=== PATIENT | male | born 1960 | race Caucasian/White ===

== ENCOUNTER 2017-11-12 22:11 | Emergency (ER) | payer MEDICARE ==
[~2017-11-12 22:11] MED LIST: FLUO-202 PO; GABA-503 PO; HYDR-2966 PO; LEVO150T78 PO; LISI-374 PO; TRAZ100T31 PO; WARF7.5T13 PO
[2017-11-12] MEDS ORDERED: LISI-374 PO (22:26)
[2017-11-12] MEDS ORDERED: LEVO25TA57 PO (22:28)
[2017-11-12] MEDS ORDERED: HYDR-2966 PO (22:28)
--- NOTE | 2017-11-12 22:45 | ER Report ---
History and Physical Time Seen By MD: 22:44 Hx. of Stated Complaint: PT HAS PASSED OUT SEVERAL TIMES TODAY. NOT EATING WELL. HAS BEEN DRINKING WATER DURING THE DAY. STATES HE WAS OUT IN THE SUN ALL DAY YESTERDAY AND HAD DRINKS LAST NIGHT. HPI/ROS CHIEF COMPLAINT: syncope HISTORY OF PRESENT ILLNESS: This is a 57 year old male. He has had several episodes of syncope today. He has not been eating well. He has been working outside in the heat and despite drinking water, does not think he has had enough to drink and is dehydrated. He has had this happen in the past as well. He has had a stroke in the past and does not have the use of his left side of his body. He was operating some equipment today and says that he has one hand to either drink water with or operate the joystick on the equipment. He denies any chest pain or palpitations. He has not shortness of breath. Mild dizziness/ lightheaded at times. He has no seizure activity. No injuries with his syncope. Says that he feels it coming on and can get down without falling or injury. Similar to previous episodes, feels the right side of his body go cool prior to the episodes. and co-workers indicate no episodes of confusion. REVIEW OF SYSTEMS: Constitutional: No fever or chills. Eyes: No vision changes. ENT: No sore throat. No congestion. Cardiovascular: As above. Respiratory: No cough. Gastrointestinal: No abdominal pain. No nausea or vomiting. No problems with bowels. Genitourinary: No dysuria or problems with urination. Musculoskeletal: No back pain or extremity pain. Skin: No rashes. Neurological: No headache. No new neurologic changes. Allergies: Coded Allergies: No Known Drug Allergies (Unverified , 11/12/17) Home Meds Active Scripts Clonidine Hcl (CLONIDINE HCL) 0.1 Mg Tablet, 0.1 MG PO BID Y for HYPERTENSION, # 10 TAB 0 Refills Prov:JASMINE COLON MD 11/13/17 Reported Medications Levothyroxine Sodium (SYNTHROID) 25 Mcg Tablet, 25 MCG PO QDAY 11/12/17 Hydrochlorothiazide (HYDROCHLOROTHIAZIDE) 25 Mg Tablet, 1 TAB PO QDAY, TAB 11/12/17 Lisinopril (LISINOPRIL) 40 Mg Tablet, 40 MG PO QDAY, TAB 11/12/17 Reviewed Nurses Notes: Yes Hx Smoking: No Exposure to Second Hand Smoke?: No Hx Substance Use Disorder: No Hx Alcohol Use: Yes (1 nightly) Constitutional Vital Sign - Last 24 Hours 11/12/17 11/12/17 11/12/17 11/12/17 22:20 23:23 23:25 23:28 Temp 98.8 Pulse 87 85 90 90 Resp 14 B/P (MAP) 150/108 145/91 (109) 154/116 (129) 169/123 (138) Pulse Ox 91 94 93 94 O2 Delivery Room Air Room Air Room Air Room Air 11/13/17 11/13/17 11/13/17 11/13/17 00:00 00:41 01:30 02:00 Pulse 88 87 86 85 B/P (MAP) 162/116 (131) 160/107 (124) 164/122 (136) 159/120 (133) Pulse Ox 96 95 95 94 O2 Delivery Room Air Room Air Room Air Room Air 11/13/17 11/13/17 11/13/17 02:30 03:00 03:15 Pulse 83 82 83 B/P (MAP) 157/111 (126) 145/84 (104) 164/108 (126) Pulse Ox 95 96 96 O2 Delivery Room Air Room Air Room Air Physical Exam General Appearance: The patient is alert. No acute distress. Blood pressure running high, but he had not taking his Lisinopril 40mg and HCTZ 12.5mg tonight. Eyes: Pupils are equal, round. Reactive to light. No pallor, injection or icterus. Extraocular movements are intact. ENT: Mucous membranes are moist. Normal oral mucosa. Posterior oropharynx is normal. Neck: Supple and non tender. No lymphadenopathy. Respiratory: Lungs are clear to auscultation. Cardiovascular: Regular rate and rhythm. No murmurs, gallops or rubs. Normal capillary refill. Gastrointestinal: Abdomen is soft and non tender. Nondistended. Normal active bowel sounds. No costovertebral angle tenderness with percussion. Neurological: Alert and oriented x3. Cranial nerves with eye exam as noted. Tongue deviation to left side, chronic. Has chronic changes from his past stroke with paralysis of the left side. Skin: Warm and dry. No rashes. Musculoskeletal: Extremities are nontender. DIFFERENTIAL DIAGNOSIS: After history and physical exam, differential diagnosis was considered for a patient with syncope including but not limited to vasovagal syncope, arrhythmia, dehydration, and metabolic causes. Medical Decision Making Data Points Result Diagram: 11/12/17231411/12/172314 Laboratory Hematology Test 11/12/17 22:22 11/12/17 23:15 Urine Color Yellow Urine Clarity Clear Urine pH 6.0 pH (4.8-9.5) Urine Specific [place] 1.011 Urine Protein Negative mg/dL (NEGATIVE) Urine Glucose (UA) Negative mg/dL (NEGATIVE) Urine Ketones Negative mg/dL (NEGATIVE) Urine Blood Negative (NEGATIVE) Urine Nitrite Negative (NEGATIVE) Urine Bilirubin Negative (NEGATIVE) Urine Urobilinogen Negative mg/dL (0.2-1.9) Urine Leukocyte Esterase Negative (NEGATIVE) Urine RBC <1 /HPF (0-2/HPF) Urine WBC <1 /HPF (0-5/HPF) Urine Squamous Epithelial Cells Few /LPF (</=FEW) Urine Transitional Epithelial Cells Few /LPF (NONE-FEW) Urine Bacteria Negative /HPF (NONE-FEW) Urine Mucus Few /HPF (NONE-FEW) Red Blood Count 5.68 M/uL (4.00-5.60) Mean Corpuscular Volume 92.5 fL (80.0-96.0) Mean Corpuscular Hemoglobin 32.4 pg (26.0-33.0) Mean Corpuscular Hemoglobin Concent 35.0 g/dL (32.0-36.0) Red Cell Distribution Width 13.4 % (11.5-14.5) Mean Platelet Volume 8.7 fL (7.2-11.1) Neutrophils (%) (Auto) 80.7 % (39.4-72.5) Lymphocytes (%) (Auto) 13.1 % (17.6-49.6) Monocytes (%) (Auto) 5.5 % (4.1-12.4) Eosinophils (%) (Auto) 0.2 % (0.4-6.7) Basophils (%) (Auto) 0.5 % (0.3-1.4) Nucleated RBC Relative Count (auto) 0.1 /100WBC Neutrophils # (Auto) 7.9 K/uL (2.0-7.4) Lymphocytes # (Auto) 1.3 K/uL (1.3-3.6) Monocytes # (Auto) 0.5 K/uL (0.3-1.0) Eosinophils # (Auto) 0.0 K/uL (0.0-0.5) Basophils # (Auto) 0.0 K/uL (0.0-0.1) Nucleated RBC Absolute Count (auto) 0.01 K/uL Erythrocyte Sedimentation Rate 1 mm/HOUR (0-20) Sodium Level 137 mmol/L (137-145) Potassium Level 3.3 mmol/L (3.5-5.0) Chloride Level 98 mmol/L (98-107) Carbon Dioxide Level 28 mmol/L (22-30) Blood Urea Nitrogen 13 mg/dl (9-21) Creatinine 1.00 mg/dl (0.66-1.25) Glomerular Filtration Rate Calc > 60.0 Random Glucose 110 mg/dl (75-110) Calcium Level 9.2 mg/dl (8.4-10.2) Total Bilirubin 1.1 mg/dl (0.2-1.3) Aspartate Amino Transf (AST/SGOT) 30 U/L (0-35) Alanine Aminotransferase (ALT/SGPT) 57 U/L (0-56) Alkaline Phosphatase 51 U/L (0-126) Troponin I < 0.012 ng/ml Total Protein 6.9 g/dl (6.3-8.2) Albumin 4.1 g/dl (3.5-5.0) Chemistry Test 11/12/17 22:22 11/12/17 23:15 Urine Color Yellow Urine Clarity Clear Urine pH 6.0 pH (4.8-9.5) Urine Specific [place] 1.011 Urine Protein Negative mg/dL (NEGATIVE) Urine Glucose (UA) Negative mg/dL (NEGATIVE) Urine Ketones Negative mg/dL (NEGATIVE) Urine Blood Negative (NEGATIVE) Urine Nitrite Negative (NEGATIVE) Urine Bilirubin Negative (NEGATIVE) Urine Urobilinogen Negative mg/dL (0.2-1.9) Urine Leukocyte Esterase Negative (NEGATIVE) Urine RBC <1 /HPF (0-2/HPF) Urine WBC <1 /HPF (0-5/HPF) Urine Squamous Epithelial Cells Few /LPF (</=FEW) Urine Transitional Epithelial Cells Few /LPF (NONE-FEW) Urine Bacteria Negative /HPF (NONE-FEW) Urine Mucus Few /HPF (NONE-FEW) White Blood Count 9.8 k/uL (4.5-11.0) Red Blood Count 5.68 M/uL (4.00-5.60) Hemoglobin 18.4 g/dL (14.0-18.0) Hematocrit 52.6 % (42.0-52.0) Mean Corpuscular Volume 92.5 fL (80.0-96.0) Mean Corpuscular Hemoglobin 32.4 pg (26.0-33.0) Mean Corpuscular Hemoglobin Concent 35.0 g/dL (32.0-36.0) Red Cell Distribution Width 13.4 % (11.5-14.5) Platelet Count 204 K/uL (150-450) Mean Platelet Volume 8.7 fL (7.2-11.1) Neutrophils (%) (Auto) 80.7 % (39.4-72.5) Lymphocytes (%) (Auto) 13.1 % (17.6-49.6) Monocytes (%) (Auto) 5.5 % (4.1-12.4) Eosinophils (%) (Auto) 0.2 % (0.4-6.7) Basophils (%) (Auto) 0.5 % (0.3-1.4) Nucleated RBC Relative Count (auto) 0.1 /100WBC Neutrophils # (Auto) 7.9 K/uL (2.0-7.4) Lymphocytes # (Auto) 1.3 K/uL (1.3-3.6) Monocytes # (Auto) 0.5 K/uL (0.3-1.0) Eosinophils # (Auto) 0.0 K/uL (0.0-0.5) Basophils # (Auto) 0.0 K/uL (0.0-0.1) Nucleated RBC Absolute Count (auto) 0.01 K/uL Erythrocyte Sedimentation Rate 1 mm/HOUR (0-20) Glomerular Filtration Rate Calc > 60.0 Calcium Level 9.2 mg/dl (8.4-10.2) Total Bilirubin 1.1 mg/dl (0.2-1.3) Aspartate Amino Transf (AST/SGOT) 30 U/L (0-35) Alanine Aminotransferase (ALT/SGPT) 57 U/L (0-56) Alkaline Phosphatase 51 U/L (0-126) Troponin I < 0.012 ng/ml Total Protein 6.9 g/dl (6.3-8.2) Albumin 4.1 g/dl (3.5-5.0) Urinalysis Test 11/12/17 22:22 Urine Color Yellow Urine Clarity Clear Urine pH 6.0 pH (4.8-9.5) Urine Specific [place] 1.011 Urine Protein Negative mg/dL (NEGATIVE) Urine Glucose (UA) Negative mg/dL (NEGATIVE) Urine Ketones Negative mg/dL (NEGATIVE) Urine Blood Negative (NEGATIVE) Urine Nitrite Negative (NEGATIVE) Urine Bilirubin Negative (NEGATIVE) Urine Urobilinogen Negative mg/dL (0.2-1.9) Urine Leukocyte Esterase Negative (NEGATIVE) Urine RBC <1 /HPF (0-2/HPF) Urine WBC <1 /HPF (0-5/HPF) Urine Squamous Epithelial Cells Few /LPF (</=FEW) Urine Transitional Epithelial Cells Few /LPF (NONE-FEW) Urine Bacteria Negative /HPF (NONE-FEW) Urine Mucus Few /HPF (NONE-FEW) EKG/Imaging EKG Interpretation 12 lead EKG: Rhythm: normal sinus rhythm, rate 88 [place]: normal QRS: normal ST segments: normal Imaging HEAD W/O CONTRAST HISTORY: Syncope. History of stroke. COMPARISON: 04/06/2016 and studies dating to 01/31/2013. TECHNIQUE: Axial images were obtained from the skull base to the vertex without contrast. Sagittal and coronal reformats were performed. One of the following dose optimization techniques was utilized in the performance of this exam: Automated exposure control; adjustment of the mA and/ or kV according to the patient's size; or use of an iterative reconstruction technique. Specific details can be referenced in the facility's radiology CT exam operational policy. CONTRAST: None. FINDINGS: Brain: No intracranial hemorrhage, mass or edema. There is mild encephalomalacia in the right lateral basal ganglia, sequela of prior hemorrhagic infarct that was acute in January 2013. There is periventricular white matter low attenuation that is nonspecific, but most likely reflects chronic microvascular ischemic change, mild in severity. Ventricles and sulci: Sulci are normal. There is ex vacuo dilation of the right lateral ventricle, unchanged. No hydrocephalus. Osseous structures: Intact. Paranasal sinuses and mastoids: There is mild mucosal thickening of the maxillary sinuses. 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 Mastoids are clear. Orbits and soft tissues: There is mild to moderate cerumen within the right external auditory canal. IMPRESSION: 1. No acute intracranial abnormality. Report Dictated By: Sunita Ramirez at 11/12/2017 11:59 PM ED Course/Re-evaluation Clinical Indication for ER IV: Hydration, IV Access ED Course Patient with normal orthostatic vital signs. [place] much better after 2 liters of IV fluids. Blood pressure still high even after his regular medicines. This has happened in the past and has been admitted in the past with multiple blood pressure medicines tried and no success. He has periods where the diastolic will run high, and then will suddenly return to normal. Unsure why this happens. Discussed options including admission for further treatment, but after discussion of options and risks/benefits, shared decision making, decided to have him return home, rest and continue to monitor pressures. Gave the option to try Clonidine 0.1mg PO twice a day if needed. Decision to Disposition Date: Nov 13, 2017 Decision to Disposition Time: 01:35 Depart Departure Latest Vital Signs Vital Signs Date Time Temp Pulse Resp B/P (MAP) Pulse Ox O2 Delivery O2 Flow Rate FiO2 11/13/17 03:15 83 164/108 (126) 96 Room Air 11/12/17 22:20 98.8 14 Impression: Primary Impression: Syncope Additional Impression: Elevated blood pressure reading Condition: Improved Disposition: HOME OR SELF-CARE Referrals: CAESAR CANTU DO (PCP) New Scripts Clonidine Hcl (CLONIDINE HCL) 0.1 Mg Tablet 0.1 MG PO BID Y for HYPERTENSION, #10 TAB 0 Refills Prov: JASMINE COLON MD 11/13/17 Patient Instructions: Hypertension (ED), Syncope (ED) Additional Instructions: Rest and increase fluid intake this weekend. You can return as needed for elevated blood pressure. You can try a new medicine called Clonidine if blood pressures are remaining high. Clonidine 0.1mg tablets, twice a day as needed for elevated blood pressures. Would recommend this if the upper blood pressure number (Systolic) is greater than 220, or if the bottom number (diastolic) is above 120. Problem Qualifiers Primary Impression: Syncope Syncope type: unspecified Qualified Codes: R55 - Syncope and collapse JASMINE CLOON MD Nov 12, 2017 22:45
[2017-11-12] MEDS ORDERED: NS(*) 0.9% 1000 ML BAG 1,000 ML IV ONE ×2 (23:00→23:55)
--- NOTE | 2017-11-12 23:17 | EKG ---
FACILITY: [facility] PATIENT NAME: ALTAGRACIA STONE : [id number] MR: [id number] V: [id number] EXAM DATE: ORDERING PHYSICIAN: JASMINE COLON TECHNOLOGIST: HELIO Test Reason : SYNCOPE Blood Pressure : / mmHG Vent. Rate : 088 BPM Atrial Rate : 088 BPM P-R Int : 186 ms QRS Dur : 098 ms QT Int : 366 ms P-R-T Axes : 051 -16 044 degrees QTc Int : 442 ms Normal sinus rhythm Normal ECG When compared with ECG of 06-APR-2016 20:25, No significant change was found Confirmed by Kyree Francis ([id number]) on 11/13/2017 6:02:31 AM Referred By: Confirmed By:Kyree Barahona
[2017-11-12 23:23] LABS: PLATELET COUNT, AUTOMATED 204 K/uL (150-450)
[2017-11-12] MEDS ORDERED: LISINOPRIL 20 MG TAB PO ONE (23:35)
[2017-11-12] MEDS ORDERED: HYDROCHLOROTHIAZIDE 25 MG TAB PO ONE (23:35)
--- NOTE | 2017-11-13 00:10 | RADIOLOGY IMAGING REPORT ---
FACILITY: [facility] [place] PATIENT NAME: Pravin Ellsworth : 1960 MR: [id number] V: [id number] EXAM DATE: ORDERING PHYSICIAN: JASMINE COLON TECHNOLOGIST: [place] [facility] [place] Pravin Ell[place] : 1960 Visit/Account:[id number] Date of Sevice: 11/12/2017 HEAD W/O CONTRAST HISTORY: Syncope. History of stroke. COMPARISON: 04/06/2016 and studies dating to 01/31/2013. TECHNIQUE: Axial images were obtained from the skull base to the vertex without contrast. Sagittal an d coronal reformats were performed. One of the following dose optimization techniques was utilized in the performance of this exam: Autom ated exposure control; adjustment of the mA and/or kV according to the patient's size; or use of an i terative reconstruction technique. Specific details can be referenced in the facility's radiology CT exam operational policy. CONTRAST: None. FINDINGS: Brain: No intracranial hemorrhage, mass or edema. There is mild encephalomalacia in the right lateral basal ganglia, sequela of prior hemorrhagic infarct that was acute in January 2013. There is periven tricular white matter low attenuation that is nonspecific, but most likely reflects chronic microvasc ular ischemic change, mild in severity. Ventricles and sulci: Sulci are normal. There is ex vacuo dilation of the right lateral ventricle, un changed. No hydrocephalus. Osseous structures: Intact. Paranasal sinuses and mastoids: There is mild mucosal thickening of the maxillary sinuses. There is a mucous retention pseudocyst in the left maxillary sinus. Frontal sinuses are not pneumatized, a deve lopmental variant. Mastoids are clear. Orbits and soft tissues: There is mild to moderate cerumen within the right external auditory canal. IMPRESSION: 1. No acute intracranial abnormality. Report Dictated By: Sunita Ramirez at 11/12/2017 11:59 PM Report E-Signed By: Sunita Ramirez at 11/13/2017 12:07 AM WSN:[id number]
[2017-11-13] MEDS ORDERED: POTASSIUM CHL 20 MEQ TABCR PO ONE (00:55)
[2017-11-13] MEDS ORDERED: LABETALOL HCL 100 MG/20ML VIAL IVP ONE (01:40)
[2017-11-13 03:15] VITALS: BP 164/108
[2017-11-13] MEDS ORDERED: CLON-327 PO (03:18)
== END 2017-11-13 03:30 | disposition home or self-care (01) ==
LOC: ER 22:46
DX: R55 Syncope and collapse (principal); R03.0 Elevated blood-pressure reading, without diagnosis of hypertension; Z86.73 Personal history of transient ischemic attack (TIA), and cerebral infarction without residual deficits; R42 Dizziness and giddiness
CPT/HCPCS: 36415; 70450; 81001; 84484; 85025; 85651; 93005; 96361; 96374; 99284; A9270; J3490; J7030; 82040; 82247; 82310; 82374; 82435; 82565; 82947; 84075; 84132; 84155; 84295; 84450; 84460; 84520

== ENCOUNTER 2018-03-17 08:54 | Emergency (ER) | payer MEDICARE ==
[2018-03-17] MEDS ORDERED: NS(*) 0.9% 1000 ML BAG 1,000 ML IV ONE (09:05)
--- NOTE | 2018-03-17 09:05 | ER Report ---
History and Physical Time Seen By MD: 09:06 Hx. 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 He denies chest pain. No headache. He felt nauseous while was having the posterior neck pain. He has had previous episodes that have been related to dehydration. I talked extensively with his who states that he does not drink fluids. He admits to drinking 2 beers yesterday, which she states usually causes him to be dehydrated. He is also on hydrochlorothiazide and lisinopril. He did not take his blood pressure medication last night. He woke up this morning feeling well, and the episode occurred at 7:30. Remainder of the 14 system rev: Yes Allergies: Coded Allergies: No Known Drug Allergies (Unverified , 03/17/18) Home Meds Active Scripts Clonidine Hcl (CLONIDINE HCL) 0.1 Mg Tablet, 0.1 MG PO BID PRN for HYPERTENSION, #10 TAB 0 Refills Prov:JASMINE COLON MD 11/13/17 Reported Medications Levothyroxine Sodium (SYNTHROID) 25 Mcg Tablet, 25 MCG PO QDAY 11/12/17 Hydrochlorothiazide (HYDROCHLOROTHIAZIDE) 25 Mg Tablet, 1 TAB PO QDAY, TAB 11/12/17 Lisinopril (LISINOPRIL) 40 Mg Tablet, 40 MG PO QDAY, TAB 11/12/17 Reviewed Nurses Notes: Yes Old Medical Records Reviewed: Yes Hx Smoking: No Exposure to Second Hand Smoke?: No Hx Substance Use Disorder: No Hx Alcohol Use: Yes (1 nightly) Constitutional Vital Sign - Last 24 Hours 03/17/18 03/17/18 03/17/18 03/17/18 08:54 08:56 08:57 09:00 Temp 98.4 Pulse 73 70 Resp 12 B/P (MAP) 154/106 (122) 158/105 145/109 (121) Pulse Ox 94 O2 Delivery Room Air 03/17/18 03/17/18 03/17/18 03/17/18 09:24 09:54 10:24 10:30 Pulse 73 71 74 Resp 10 12 10 B/P (MAP) 132/103 (113) Pulse Ox 93 03/17/18 03/17/18 03/17/18 03/17/18 10:59 11:00 11:29 11:30 Pulse 71 75 Resp 26 13 B/P (MAP) 149/106 (120) 136/106 (116) Pulse Ox 93 03/17/18 03/17/18 03/17/18 03/17/18 11:35 12:00 12:05 12:30 Pulse 73 74 Resp 10 14 B/P (MAP) 151/107 (122) 154/109 (124) Pulse Ox 94 93 03/17/18 12:35 Pulse 71 Resp 15 Pulse Ox 92 Physical Exam General Appearance: The patient is alert, has no immediate need for airway protection and no current signs of toxicity. Eyes: Pupils equal and round no injection. Respiratory: Chest is non tender, lungs are clear to auscultation. Cardiac: regular rate and rhythm Gastrointestinal: Abdomen is soft and non tender, no masses, bowel sounds normal. Neck: Neck is supple and non tender. Extremities have full range of motion and are non tender. Skin: No rashes or lesions. DIFFERENTIAL DIAGNOSIS: After history and physical exam differential diagnosis was considered for chest/neck/shoulder pain including but not limited to myocardial ischemia, pericarditis pulmonary embolus, chest wall pain, pleural inflammation,muscle spasm, and pulmonary infectious causes. Medical Decision Making Data Points Result Diagram: 03/17/1812 03/17/18 0912 Laboratory Hematology Test 03/17/18 09:12 03/17/18 12:00 Red Blood Count 5.27 M/uL (4.00-5.60) Mean Corpuscular Volume 93.6 fL (80.0-96.0) Mean Corpuscular Hemoglobin 31.8 pg (26.0-33.0) Mean Corpuscular Hemoglobin Concent 34.0 g/dL (32.0-36.0) Red Cell Distribution Width 13.3 % (11.5-14.5) Mean Platelet Volume 8.1 fL (7.2-11.1) Neutrophils (%) (Auto) 60.6 % (39.4-72.5) Lymphocytes (%) (Auto) 27.2 % (17.6-49.6) Monocytes (%) (Auto) 8.9 % (4.1-12.4) Eosinophils (%) (Auto) 2.5 % (0.4-6.7) Basophils (%) (Auto) 0.8 % (0.3-1.4) Nucleated RBC Relative Count (auto) 0.0 /100WBC Neutrophils # (Auto) 3.5 K/uL (2.0-7.4) Lymphocytes # (Auto) 1.6 K/uL (1.3-3.6) Monocytes # (Auto) 0.5 K/uL (0.3-1.0) Eosinophils # (Auto) 0.1 K/uL (0.0-0.5) Basophils # (Auto) 0.0 K/uL (0.0-0.1) Nucleated RBC Absolute Count (auto) 0.00 K/uL Sodium Level 140 mmol/L (137-145) Potassium Level 4.2 mmol/L (3.5-5.0) Chloride Level 103 mmol/L (98-107) Carbon Dioxide Level 30 mmol/L (22-30) Blood Urea Nitrogen 15 mg/dl (9-21) Creatinine 1.20 mg/dl (0.66-1.25) Glomerular Filtration Rate Calc > 60.0 Random Glucose 104 mg/dl (75-110) Calcium Level 9.2 mg/dl (8.4-10.2) Total Bilirubin 1.1 mg/dl (0.2-1.3) Aspartate Amino Transf (AST/SGOT) 23 U/L (0-35) Alanine Aminotransferase (ALT/SGPT) 45 U/L (0-56) Alkaline Phosphatase 44 U/L (0-126) Total Protein 6.9 g/dl (6.3-8.2) Albumin 3.8 g/dl (3.5-5.0) Troponin I < 0.012 ng/ml Chemistry Test 03/17/18 09:12 03/17/18 12:00 White Blood Count 5.7 k/uL (4.5-11.0) Red Blood Count 5.27 M/uL (4.00-5.60) Hemoglobin 16.8 g/dL (14.0-18.0) Hematocrit 49.3 % (42.0-52.0) Mean Corpuscular Volume 93.6 fL (80.0-96.0) Mean Corpuscular Hemoglobin 31.8 pg (26.0-33.0) Mean Corpuscular Hemoglobin Concent 34.0 g/dL (32.0-36.0) Red Cell Distribution Width 13.3 % (11.5-14.5) Platelet Count 216 K/uL (150-450) Mean Platelet Volume 8.1 fL (7.2-11.1) Neutrophils (%) (Auto) 60.6 % (39.4-72.5) Lymphocytes (%) (Auto) 27.2 % (17.6-49.6) Monocytes (%) (Auto) 8.9 % (4.1-12.4) Eosinophils (%) (Auto) 2.5 % (0.4-6.7) Basophils (%) (Auto) 0.8 % (0.3-1.4) Nucleated RBC Relative Count (auto) 0.0 /100WBC Neutrophils # (Auto) 3.5 K/uL (2.0-7.4) Lymphocytes # (Auto) 1.6 K/uL (1.3-3.6) Monocytes # (Auto) 0.5 K/uL (0.3-1.0) Eosinophils # (Auto) 0.1 K/uL (0.0-0.5) Basophils # (Auto) 0.0 K/uL (0.0-0.1) Nucleated RBC Absolute Count (auto) 0.00 K/uL Glomerular Filtration Rate Calc > 60.0 Calcium Level 9.2 mg/dl (8.4-10.2) Total Bilirubin 1.1 mg/dl (0.2-1.3) Aspartate Amino Transf (AST/SGOT) 23 U/L (0-35) Alanine Aminotransferase (ALT/SGPT) 45 U/L (0-56) Alkaline Phosphatase 44 U/L (0-126) Total Protein 6.9 g/dl (6.3-8.2) Albumin 3.8 g/dl (3.5-5.0) Troponin I < 0.012 ng/ml ED Course/Re-evaluation ED Course Normal EKG and 2 normal troponins taken 3 hours apart. No shortness of breath or chest pain, and not consistent with a PE. Given he has had previous episodes ita t started similarly, he may get dehydrated which causes him to have muscle spasm and panic. All the previous episodes seem to be relieved with IV fluids. There is a combination of not drinking fluids, he does exercise in a recumbent bike at home, and taking hydrochlorothiazide. I spoke at length about keeping his fluid balance. His kidney function is at baseline. He will follow-up with his primary care physician. Decision to Disposition Date: Mar 17, 2018 Decision to Disposition Time: 14:01 Depart Departure Latest Vital Signs Vital Signs Date Time Temp Pulse Resp B/P (MAP) Pulse Ox O2 Delivery O2 Flow Rate FiO2 03/17/18 12:35 71 15 92 03/17/18 12:30 154/109 (124) 03/17/18 08:57 98.4 Room Air Impression: Primary Impression: Dehydration Condition: Improved Disposition: HOME OR SELF-CARE Referrals: CAESAR CANTU DO (PCP) Patient Instructions: Dehydration (ED) SANDY GUIDO MD Mar 17, 2018 09:05
[2018-03-17 09:23] LABS: PLATELET COUNT, AUTOMATED 216 K/uL (150-450)
--- NOTE | 2018-03-17 09:33 | EKG ---
[place] [facility] [place] NAME[place] ALTAGRACIA STONE : [id number] MR: [id number] V: [id number] EXAM DATE: ORDERING PHYSICIAN: SANDY GUIDO TECHNOLOGIST: Test Reason : cp Blood Pressure : / mmHG Vent. Rate : 072 BPM Atrial Rate : 072 BPM P-R Int : 184 ms QRS Dur : 092 ms QT Int : 378 ms P-R-T Axes : 004 -29 023 degrees QTc Int : 413 ms Normal sinus rhythm Normal ECG When compared with ECG of 12-NOV-2017 23:07, No significant change was found Confirmed by ASTER SHERMAN ([id number]) on 03/17/2018 4:10:13 PM Referred By: Confirmed By:ASTER SHERMAN
--- NOTE | 2018-03-17 09:57 | RADIOLOGY IMAGING REPORT ---
FACILITY: [facility] [place] PATIENT NAME: Pravin Ellsworth : 1960 MR: [id number] V: [id number] EXAM DATE: ORDERING PHYSICIAN: SANDY GUIDO TECHNOLOGIST: Location: [facility] - [place] Patient: Pravin Ellsworth : 1960 Visit/Account:[id number] Date of Sevice: 03/17/2018 Exam type: CHEST SINGLE AP History: chest pain Comparison: April 06, 2016. Findings: The lungs are free of acute effusions, infiltrates or edema. There is no evidence of a pneumothorax or pneumomediastinum. The cardiac silhouette appears normal. Trachea is in midline. IMPRESSION: 1. No acute cardiac pulmonary process is seen Report Dictated By: Ciera Acuna MD at 03/17/2018 9:52 AM Report E-Signed By: Ciera Acuna MD at 03/17/2018 9:53 AM [id number]
[2018-03-17 12:30] VITALS: BP 154/109
== END 2018-03-17 14:06 | disposition home or self-care (01) ==
LOC: ER 09:16
DX: E86.0 Dehydration (principal)
CPT/HCPCS: 36415; 71045; 84484; 85025; 93005; 96360; 96361; 99284; J7030; 82040; 82247; 82310; 82374; 82435; 82565; 82947; 84075; 84132; 84155; 84295; 84450; 84460; 84520

== ENCOUNTER → 2018-03-17 | Outpatient (CLI) | payer MEDICARE ==
[~2018-03-17] MED LIST changes: +CLON-327 PO; +LEVO25TA57 PO
== END ==
LOC: AMB 08:24
PROVIDERS: ATTEND Nurse Practitioner
DX: R42 Dizziness and giddiness (principal); R53.1 Weakness; M54.2 Cervicalgia; R51 Headache
CPT/HCPCS: A0425; A0427

== ENCOUNTER → 2018-05-13 | Outpatient (CLI) | payer MEDICARE ==
[~2018-05-13] MED LIST changes: -GABA-503 PO; +GABA-533 PO; +REGADENOSON 0.4 MG/5 ML SYR ONE
== END ==
LOC: RESP 02:14
PROVIDERS: ATTEND Emergency Medicine
DX: Z02.9 Encounter for administrative examinations, unspecified (principal)
CPT/HCPCS: J2785

== ENCOUNTER → 2018-05-19 | Outpatient (CLI) | payer MEDICARE ==
--- NOTE | 2018-05-20 07:28 | RT STRESS TEST REPORT ---
FACILITY: [facility] [place] PATIENT NAME: ALTAGRACIA STONE : [id number] MR: [id number] V: [id number] EXAM DATE: ORDERING PHYSICIAN: LITTLE SOLORIO TECHNOLOGIST: Enzo Acquisition Time: 2018-05-19 14:53:57 Total Exercise Time: 00:01:00 Test Indications: CHEST PAIN Medications: SEE CHART Protocol: LEXISCAN Max HR: 096 BPM 58% of Pred: 164 BPM Max BP: 163/095 mmHG Max Work Load: 1.0 METS Confirmed by JS GODOY ([id number]) on 05/20/2018 7:27:26 AM Referred By: Overread By: JS GODOY
--- NOTE | 2018-05-20 11:22 | RADIOLOGY IMAGING REPORT ---
FACILITY: [facility] PATIENT NAME: Pravin Ellsworth : 1960 MR: [id number] V: [id number] EXAM DATE: ORDERING PHYSICIAN: LITTLE SOLORIO TECHNOLOGIST: Location: [facility] Patient: Pravin Ellsworth : 1960 Visit/Account:[id number] Date of Sevice: 05/19/2018 EXAMINATION: Single isotope SPECT imaging with regadenoson infusion and gated SPECT imaging. DATE OF EXAMINATION: 05/19/2018. DATE OF INTERPRETATION: 11/17/2018. REQUESTING PHYSICIAN: LITTLE SOLORIO. INDICATION: The patient is a 58-year-old male evaluated for chest pain. PROCEDURE: After informed consent the patient received an intravenous injection of 11.5 mCi of Tc-99 m sestamibi followed at an appropriate time interval by rest imaging. The patient then subsequently received an intravenous infusion of 0.4 mg of regadenoson per protocol without complication. Resting heart rate was 67 bpm with a peak heart rate of 96 bpm. Blood pressure at rest was 131 / 96 and fol lowing infusion was 163 / 95. Baseline EKG demonstrates normal sinus rhythm. There were no EKG guerra ges of ischemia following infusion. Symptoms were nonspecific. The patient then received an intrave nous injection of 29.0 mCi of Tc-99m sestamibi followed by stress imaging. RAW DATA: Examination of the summed raw data revealed a adequate quality study. MYOCARDIAL PERFUSION: The tomographic images demonstrate a very mild apical defect on rest images. O n stress images there is a moderate sized, moderate intensity defect in the mid to apical anterior an d anteroseptal wall including the cardiac apex. Findings are consistent with mid to distal LAD ischem ia. No transient ischemic dilation. GATED IMAGES: The gated images demonstrate normal LV ejection fraction greater than 70%. Normal meagan onal wall motion. IMPRESSION: 1. Nondiagnostic pharmacologic stress ECG 2. Abnormal myocardial perfusion scan with evidence of a mid to distal anterior infarct with moderat e chema-infarct ischemia. 3. Normal LV systolic function; LVEF 70%. 4. Based on the results of this exam, the patient appears to be at moderate risk for future cardiovas cular events. 5. Ordering physician notified at the time of reading. Report Dictated By: Pato Morris at 05/20/2018 11:02 AM Report E-Signed By: Pato Morris at 05/20/2018 11:17 AM WSN:[id number]
== END ==
LOC: RESP 01:01
PROVIDERS: ATTEND Emergency Medicine
DX: R93.1 Abnormal findings on diagnostic imaging of heart and coronary circulation (principal)
CPT/HCPCS: 78452; 93017; A9500; J2785

== ENCOUNTER → 2018-08-27 | Outpatient (REF) | payer MEDICARE ==
[~2018-08-27] MED LIST changes: -REGADENOSON 0.4 MG/5 ML SYR ONE
[2018-08-27 13:01] LABS: PLATELET COUNT, AUTOMATED 216 K/uL (150-450)
[2018-08-27 13:09] LABS: INR 0.98
== END ==
PROVIDERS: ATTEND Nurse Practitioner Family
DX: Z79.02 Long term (current) use of antithrombotics/antiplatelets (principal)
CPT/HCPCS: 82040; 82247; 82310; 82374; 82435; 82565; 82947; 84075; 84132; 84155; 84295; 84450; 84460; 84520; 85025; 85610; 85730

== ENCOUNTER 2018-10-05 15:00 | Outpatient (RCR) | payer MEDICARE ==
[2018-08-12 16:51] VITALS: BP 122/82
[2018-08-12 16:54] VITALS: BP 120/80
--- NOTE | 2018-08-14 13:02 | CARDIAC REHAB PLAN OF CARE ---
Physician: Justin MCCRARY Patient is being seen: Kyle Kohli Medical Diagnosis: PCI stent x 1 Date of Initial Evaluation: 08/12/2018 Short Term Goals Due Date: 09/12/18 Patient Assessment: Patient is a 58 year old male that comes to cardiac rehab after a 06/02/2018 PCI stent x 1 was placed in the 100% LAD which has 100% stenosis. 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 Patient is able to walk with the use of a cane, but will tire and does use a wheelchair also. Exercise Assessment: Due to patients left sided deficit and poor sleep the previous night the 6 minute walk test was not tested on the evaluation day. Patient reports he does walk 1/4 of a mile many days of the week for exercise and will also walk stairs at his house for exercise. Patient describes having very good fitness prior to the 2012 stroke and is currently trying stay active with regular exercise. Patient was evaluated today on the NuStep with 5 minute rounds trying different levels to achieve intially a rest plus 30 HR along with a RPE of moderate to somewhat hard work level. Patient did a total of 25 minutes on the NuStep achieving 956 steps at level of 5-10. SPO2 level were maintained in the low 90's on room air, and the front desk monitor showed a NSR with an occasional PVC and rates of 73-93. Exercise Plan: Goals: Are to continue with NuStep, and recumbent bike, gradually increasing time and intensity to increase overall exercise volume. Exercise Prescription: Mode: Will be the NuStep, and recumbent bike, and if the patient has not be able to walk at home we can also utilize the treadmill for part of his total aerobic exercise. Frequency: 3 days/week (MWF) Duration: 30-40 minutes of aerobic exercise, with 10-15 minutes of strength training and stretching. . Intensity: Patient shows up with good motivation to exercise and improve health. Intial aerobic MET range will be 2.8-3.2 and as patient improves we will adjust that range to have him at 3.0 METs or higher during the entire session. Exercise Reassessment (Date: ): Exercise Discharge/Follow-Up (Date: ): Nutrition Assessment: The patient reports eating healthy most of the time, but would like to lose some weight and adjust diet to include more Mediterranean Diet choices. Patient is 73 inches tall, and 220 lbs. a BMI at 29.0 kg/m2. Nutrition Plan: Goals: The goals with be to further educate him on the Mediterranean Diet while also evaluating BP and to eliminate foods that can raise BP. Portion control will also terrazzo layer helper in gradual healthy weight loss. Intervention: During patient visits for rehab we will review and continue to educate the patient on dietary choices and healthy choices for the current foods the patient enjoys. Nutrition Reassessment (Date: ): Nutrition Discharge/Follow-Up (Date: ): Psychosocial Assessment: The patient scored 9/21 (moderate level) for depression, and 2/21 for anxiety (normal level) on the HADS test. Patient describes nearly all of his stress is work related and that he has had depression related to his 2013 stroke and the deficits related to that, but his outlook and motivation to improve his health is very positive and upbeat. Psychosocial Plan: Goals: Our goal will be to continue to educate and motivate patient on health improvements and teaching that these changes and consistency of those changes bring about results with time and to also be patient with that process. CR staff will also make adjustments to help achieve the goals throughout the phase II program. Psychosocial Reassessment (Date: ): Psychosocial Discharge/Follow-Up (Date: ): Physician Signature: Date: MTDD
[2018-08-17 16:31] VITALS: BP 124/82
[2018-08-17 16:32] VITALS: BP 118/72
[2018-08-19 16:40] VITALS: BP 132/84
[2018-08-19 16:41] VITALS: BP 122/80
[2018-08-26 16:12] VITALS: BP 142/88
[2018-08-26 16:13] VITALS: BP 130/96
[2018-08-31 16:30] VITALS: BP 140/82
[2018-08-31 16:31] VITALS: BP 140/90
[2018-09-02 17:47] VITALS: BP 144/90
[2018-09-02 17:48] VITALS: BP 140/88
[2018-09-07 16:32] VITALS: BP 120/82
[2018-09-07 16:34] VITALS: BP 132/92
[2018-09-09 16:14] VITALS: BP 144/86
[2018-09-09 16:15] VITALS: BP 126/96
[2018-09-16 17:47] VITALS: BP 122/82
[2018-09-16 17:48] VITALS: BP 120/82
--- NOTE | 2018-09-18 10:25 | CARDIAC REHAB PLAN OF CARE ---
Physician: DO Justin Patient is being seen: Kyle Kohli Medical Diagnosis: PCI, Stent x 1 Date of Initial Evaluation: 08/12/2018 Short Term Goals Due Date: 10/18/18 Short Term Goals: Patient Assessment: Patient is a 58 year old male that comes to cardiac rehab after a 06/02/2018 PCI stent x 1 was placed in the LAD which has 100% stenosis. 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 Patient is able to walk with the use of a cane, but will tire and does use a wheel chair also. Exercise Assessment: Due to patients left sided deficit and previous nights poor sleep the 6 minute walk test was not tested on the evaluation day. Patient reports he does walk 1/4 of a mile many days of the week for exercise and will also walk stairs at his house for exercise. Patient describes having very good fitness prior to the 2012 stroke and is currently trying stay active with regular exercise. Patient was evaluated today on the NuStep with 5 minute rounds trying different levels to achieve intially a rest plus 30 HR along with a RPE of moderate to somewhat hard work level. Patient did a total of 25 minutes on the NuStep achieving 956 steps at level of 5-10. SPO2 level were maintained in the low 90's on room air, and the monitor and storage bin tender showed a NSR with an occasional PVC and rates of 73-93. Exercise Plan: Goals: Are to continue with NuStep, and recumbent bike, gradually increasing time and intensity to increase overall exercise volume. Exercise Prescription: Mode: Will be the NuStep, and recumbent bike, and if the patient has not be able to walk at home we can also utilize the treadmill for part of his total aerobic exercise. Frequency: 3 days/week (MWF) Duration: 30-40 minutes of aerobic exercise, with 10-15 minutes of strength training and stretching. . Intensity: Patient shows up with good motivation to exercise and improve health. Initial aerobic MET range will be 2.8-3.2 and as patient improves we will adjust that range to have him at 3.0 METs or higher during the entire session. Exercise Reassessment (Date: 09/18/2018): Patient is very busy and has made 10 visits to cardiac rehab since 08/14/2018. Sometimes he is 30 minutes late or needs to leave early and therefore 25-30 minutes of cardio exercise is about all he does. The objective data from those 10 workouts show that duration and intensity increase has not happened and MET level improvement remains at 2.1- 2.3 which is actually lower then his evaluation day in July. He is not working hard enough to achieve THR. He is increasing his HR in the range of (rest plus 20). Patient also does not have time for any weight resistance work or stretching. Patient does report he is still able to get some exercise at home. Exercise Discharge/Follow-Up (Date: ): Nutrition Assessment: The patient reports eating healthy most of the time, but would like to lose some weight and adjust diet to include more Mediterranean Diet choices. Patient is 73 inches tall, and 220 lbs. a BMI at 29.0 kg/m2. Nutrition Plan: Goals: The goals with be to further educate him on the Mediterranean Diet while also evaluating BP and to eliminate foods that can raise BP. Portion control will also compounder helper in gradual healthy weight loss. Intervention: During patient visits for rehab we will review and continue to educate the patient on dietary choices and healthy choices for the current foods the patient enjoys. Nutrition Reassessment (Date: 09/18/2018): Patients diet remains the same without any changes towards more of the Mediterranean diet. Patient also reports weight remains the same. Nutrition Discharge/Follow-Up (Date: ): Psychosocial Assessment: The patient scored 9/21 (moderate level) for depression, and 2/21 for anxiety (normal level) on the HADS test. Patient describes nearly all of his stress is work related and that he has had depression related to his 2013 stroke and the deficits related to that, but his outlook and motivation to improve his health is very positive and upbeat. Psychosocial Plan: Goals: Our goal will be to continue to educate and motivate patient on health improvements and teaching that these changes and consistency of those changes bring about results with time and to also be patient with that process. CR staff will also make adjustments to help achieve the goals throughout the phase II program. Psychosocial Reassessment (Date: 09/18/2018): The increase in work has him busy and it seems the exercise for rehab is a lower priority. His stress remains high because of work. Psychosocial Discharge/Follow-Up (Date: ): Physician Signature: Date: MTDD
[2018-09-19 16:30] VITALS: BP 122/82
[2018-09-19 16:32] VITALS: BP 130/88
[2018-09-21 18:24] VITALS: BP 140/82
[2018-09-21 18:25] VITALS: BP 124/82
[2018-09-23 16:20] VITALS: BP_SYST 128; BP_SYST 132; BP_DIAS 82; BP_DIAS 88
[2018-09-28 16:13] VITALS: BP 148/94
[2018-09-28 16:14] VITALS: BP 152/86
[2018-10-03 16:43] VITALS: BP 120/84
[2018-10-03 16:47] VITALS: BP 140/98
[~2018-10-05 15:00] MED LIST changes: -ASPI-1471 PO; -ATOR40TA24 PO; -CLOP75TA43 PO; -ESCI10TA8 PO; -LEVO88TA43 PO
[2018-10-05 17:16] VITALS: BP 120/88
[2018-10-05 17:17] VITALS: BP 130/92
[2018-10-05] MEDS ORDERED: LEVO88TA43 PO (23:54)
[2018-10-05] MEDS ORDERED: ATOR40TA24 PO (23:54)
[2018-10-05] MEDS ORDERED: HYDR-2966 PO (23:54)
[2018-10-05] MEDS ORDERED: ESCI10TA8 PO (23:54)
[2018-10-05] MEDS ORDERED: CLOP75TA43 PO (23:54)
[2018-10-05] MEDS ORDERED: ASPI-1471 PO (23:54)
== END 2018-10-05 18:00 | disposition home or self-care (01) ==
LOC: CARD 15:00
PROVIDERS: ATTEND Family Medicine
DX: I69.16 Other paralytic syndrome following nontraumatic intracerebral hemorrhage (principal); Z95.5 Presence of coronary angioplasty implant and graft; I10 Essential (primary) hypertension; R00.1 Bradycardia, unspecified; R55 Syncope and collapse; F32.9 Major depressive disorder, single episode, unspecified; E03.9 Hypothyroidism, unspecified
CPT/HCPCS: 93798

== ENCOUNTER 2018-10-05 23:10 | Emergency (ER) | payer MEDICARE ==
--- NOTE | 2018-10-05 23:13 | ER Report ---
History and Physical Time Seen By MD: 23:12 HPI/ROS CHIEF COMPLAINT: chest pain and blood pressure elevated HISTORY OF PRESENT ILLNESS: This is a 58 year old male. History of MD with stent last May. Has been doing well since then. Also history of CVA. Tonight with chest pain, central chest and to the left. Associated with some elevated blood pressure readings, especially the diastolic blood pressure being over 100. Took his normal medicines, see medicine list below, except for his Plavix. EMS gave him 3 extra low dose aspirins, he takes 81mg in the morning. Also took a nitrogylcerin tablet and pain was gone. Sees cardiology at [facility]. No fevers or chills or recent illness. He is not short of breath. No nausea or vomiting. Has had normal bowel. No dizziness or headache. No vision changes. Has chronic changes from CVA which are not changed. Allergies: Coded Allergies: No Known Drug Allergies (Unverified , 03/17/18) Home Meds Reported Medications Aspirin (ASPIR 81) 81 Mg Tablet.dr, 81 MG PO QDAY, TAB 10/05/18 Escitalopram Oxalate (ESCITALOPRAM OXALATE) 10 Mg Tablet, 5 MG PO QDAY, TAB 10/05/18 Levothyroxine Sodium (SYNTHROID) 88 Mcg Tablet, 88 MCG PO QDAY 10/05/18 Clopidogrel Bisulfate (PLAVIX) 75 Mg Tablet, 1 TAB PO QDAY, TAB 10/05/18 Atorvastatin Calcium (LIPITOR) 40 Mg Tablet, 2 TAB PO QDAY, TAB 10/05/18 Hydrochlorothiazide (HYDROCHLOROTHIAZIDE) 25 Mg Tablet, 0.5 TAB PO QDAY, TAB 10/05/18 Lisinopril (LISINOPRIL) 40 Mg Tablet, 40 MG PO QDAY, TAB 11/12/17 Discontinued Reported Medications Levothyroxine Sodium (SYNTHROID) 25 Mcg Tablet, 25 MCG PO QDAY 11/12/17 Hydrochlorothiazide (HYDROCHLOROTHIAZIDE) 25 Mg Tablet, 1 TAB PO QDAY, TAB 11/12/17 Discontinued Scripts Clonidine Hcl (CLONIDINE HCL) 0.1 Mg Tablet, 0.1 MG PO BID PRN for HYPERTENSION, #10 TAB 0 Refills Prov:JASMINE COLON MD 11/13/17 Reviewed Nurses Notes: Yes Hx Smoking: No Exposure to Second Hand Smoke?: No Hx Substance Use Disorder: No Hx Alcohol Use: No Constitutional Vital Sign - Last 24 Hours 10/05/18 10/05/18 10/05/18 10/05/18 23:11 23:12 23:25 23:40 Temp 98.3 Pulse 77 79 76 Resp 14 22 27 B/P (MAP) 144/99 144/99 (114) Pulse Ox 92 91 90 O2 Delivery Room Air 10/05/18 10/05/18 10/06/18 10/06/18 23:45 23:50 00:00 00:05 Pulse 81 79 Resp 19 13 B/P (MAP) 124/93 (103) 121/85 (97) Pulse Ox 91 91 10/06/18 10/06/18 10/06/18 10/06/18 00:20 00:30 00:35 01:00 Pulse 77 Resp 10 25 B/P (MAP) 102/86 (91) 118/78 (91) Pulse Ox 84 90 10/06/18 10/06/18 10/06/18 10/06/18 01:05 01:10 01:30 01:40 Pulse 71 71 67 Resp 22 15 21 B/P (MAP) 109/84 (92) Pulse Ox 92 91 92 10/06/18 10/06/18 02:00 02:40 Pulse 66 Resp 13 B/P (MAP) 116/76 (89) Pulse Ox 89 Physical Exam General Appearance: The patient is alert. No acute distress. Non-toxic in appearance. Eyes: Pupils are equal, round. Reactive to light. No pallor, injection or icterus. Extraocular movements are intact. ENT: Mucous membranes are moist. Normal oral mucosa. Posterior oropharynx is normal. Neck: Supple and non tender. No lymphadenopathy. Respiratory: Lungs are clear to auscultation. Cardiovascular: Regular rate and rhythm. No murmurs, gallops or rubs. Normal capillary refill. No edema. Gastrointestinal: Abdomen is soft and non tender. Nondistended. Normal active bowel sounds. Neurological: Alert and oriented x3. Skin: Warm and dry. No rashes. Musculoskeletal: No tenderness in palpation of the chest wall or back/spine. DIFFERENTIAL DIAGNOSIS: After history and physical exam, differential diagnosis was considered for chest pain including but not limited to myocardial ischemia, pericarditis pulmonary embolus, chest wall pain, pleural inflammation and pulmonary infectious causes. Also concerned with elevated blood pressure and would like to bring this down a little bit, brief discussion about this and will try some metoprolol Medical Decision Making Data Points Result Diagram: 10/05/18230310/05/182303 Laboratory Hematology Test 10/05/18 23:04 10/06/18 02:03 Red Blood Count 5.37 M/uL (4.00-5.60) Mean Corpuscular Volume 91.5 fL (80.0-96.0) Mean Corpuscular Hemoglobin 31.9 pg (26.0-33.0) Mean Corpuscular Hemoglobin Concent 34.8 g/dL (32.0-36.0) Red Cell Distribution Width 13.9 % (11.5-14.5) Mean Platelet Volume 8.9 fL (7.2-11.1) Neutrophils (%) (Auto) 55.9 % (39.4-72.5) Lymphocytes (%) (Auto) 31.8 % (17.6-49.6) Monocytes (%) (Auto) 8.3 % (4.1-12.4) Eosinophils (%) (Auto) 3.3 % (0.4-6.7) Basophils (%) (Auto) 0.7 % (0.3-1.4) Nucleated RBC Relative Count (auto) 0.0 /100WBC Neutrophils # (Auto) 3.7 K/uL (2.0-7.4) Lymphocytes # (Auto) 2.1 K/uL (1.3-3.6) Monocytes # (Auto) 0.5 K/uL (0.3-1.0) Eosinophils # (Auto) 0.2 K/uL (0.0-0.5) Basophils # (Auto) 0.0 K/uL (0.0-0.1) Nucleated RBC Absolute Count (auto) 0.00 K/uL Sodium Level 140 mmol/L (137-145) Potassium Level 3.8 mmol/L (3.5-5.0) Chloride Level 99 mmol/L (98-107) Carbon Dioxide Level 32 mmol/L (22-30) Blood Urea Nitrogen 17 mg/dl (9-21) Creatinine 1.40 mg/dl (0.66-1.25) Glomerular Filtration Rate Calc 52.4 Random Glucose 100 mg/dl (75-110) Calcium Level 9.5 mg/dl (8.4-10.2) Total Bilirubin 0.9 mg/dl (0.2-1.3) Aspartate Amino Transf (AST/SGOT) 32 U/L (0-35) Alanine Aminotransferase (ALT/SGPT) 61 U/L (0-56) Alkaline Phosphatase 66 U/L (0-126) B-Type Natriuretic Peptide < 5 pg/ml (0-100) Total Protein 7.4 g/dl (6.3-8.2) Albumin 4.3 g/dl (3.5-5.0) Troponin I < 0.012 ng/ml Chemistry Test 10/05/18 23:04 10/06/18 02:03 White Blood Count 6.5 k/uL (4.5-11.0) Red Blood Count 5.37 M/uL (4.00-5.60) Hemoglobin 17.1 g/dL (14.0-18.0) Hematocrit 49.2 % (42.0-52.0) Mean Corpuscular Volume 91.5 fL (80.0-96.0) Mean Corpuscular Hemoglobin 31.9 pg (26.0-33.0) Mean Corpuscular Hemoglobin Concent 34.8 g/dL (32.0-36.0) Red Cell Distribution Width 13.9 % (11.5-14.5) Platelet Count 231 K/uL (150-450) Mean Platelet Volume 8.9 fL (7.2-11.1) Neutrophils (%) (Auto) 55.9 % (39.4-72.5) Lymphocytes (%) (Auto) 31.8 % (17.6-49.6) Monocytes (%) (Auto) 8.3 % (4.1-12.4) Eosinophils (%) (Auto) 3.3 % (0.4-6.7) Basophils (%) (Auto) 0.7 % (0.3-1.4) Nucleated RBC Relative Count (auto) 0.0 /100WBC Neutrophils # (Auto) 3.7 K/uL (2.0-7.4) Lymphocytes # (Auto) 2.1 K/uL (1.3-3.6) Monocytes # (Auto) 0.5 K/uL (0.3-1.0) Eosinophils # (Auto) 0.2 K/uL (0.0-0.5) Basophils # (Auto) 0.0 K/uL (0.0-0.1) Nucleated RBC Absolute Count (auto) 0.00 K/uL Glomerular Filtration Rate Calc 52.4 Calcium Level 9.5 mg/dl (8.4-10.2) Total Bilirubin 0.9 mg/dl (0.2-1.3) Aspartate Amino Transf (AST/SGOT) 32 U/L (0-35) Alanine Aminotransferase (ALT/SGPT) 61 U/L (0-56) Alkaline Phosphatase 66 U/L (0-126) B-Type Natriuretic Peptide < 5 pg/ml (0-100) Total Protein 7.4 g/dl (6.3-8.2) Albumin 4.3 g/dl (3.5-5.0) Troponin I < 0.012 ng/ml EKG/Imaging EKG Interpretation 12 lead EKG: At 23:14 hours Rhythm: normal sinus rhythm, rate 77 [place]: normal QRS: normal ST segments: normal 12 lead EKG: At 02:13 hours Rhythm: normal sinus rhythm, rate 71 [place]: normal QRS: normal ST segments: normal Imaging CHEST SINGLE AP Indication: Chest Pain Comparison: March 17, 2018. Findings: Heart size within normal limits. There is no focal infiltrate or lobar consolidation. No pneumothorax or pleural effusion. IMPRESSION: 1. No acute cardiopulmonary process. Report Dictated By: Rafa Damon MD at 10/06/2018 12:14 AM ED Course/Re-evaluation Clinical Indication for ER IV: IV Access ED Course Initial labs unremarkable including troponin and d-dimer. Metoprolol 25 mg oral dose given, good reduction of blood pressure. For 3 hour repeat troponin which was negative and repeat EKG negative. Recommended follow-up with cardiology, call their office in the morning to discuss further options. Decision to Disposition Date: Oct 06, 2018 Decision to Disposition Time: 02:45 Depart Departure Latest Vital Signs Vital Signs Date Time Temp Pulse Resp B/P (MAP) Pulse Ox O2 Delivery O2 Flow Rate FiO2 10/06/18 02:40 66 13 89 10/06/18 02:00 116/76 (89) 10/05/18 23:11 98.3 Room Air Impression: Primary Impression: Chest pain Condition: Improved Disposition: HOME OR SELF-CARE Patient Instructions: Chest Pain (ED) Additional Instructions: Call your literacy teacher this morning for scheduling a reevaluation. Let them know you were here in the ER tonight. No changes to medications at this time. The medication we gave here in the ER for the blood pressure was metoprolol tartrate 25 mg oral tablet Problem Qualifiers Primary Impression: Chest pain Chest pain type: unspecified Qualified Codes: R07.9 - Chest pain, unspecified JASMINE COLON MD Oct 05, 2018 23:13
--- NOTE | 2018-10-05 23:30 | EKG ---
FACILITY: [facility] PATIENT NAME: ALTAGRACIA STONE : [id number] MR: [id number] V: [id number] EXAM DATE: ORDERING PHYSICIAN: JASMINE COLON TECHNOLOGIST: GURJIT Test Reason : CP Blood Pressure : / mmHG Vent. Rate : 077 BPM Atrial Rate : 077 BPM P-R Int : 184 ms QRS Dur : 096 ms QT Int : 380 ms P-R-T Axes : 026 -14 055 degrees QTc Int : 430 ms Normal sinus rhythm Normal ECG When compared with ECG of 17-MAR-2018 09:09, No significant change was found Confirmed by ASTER SHERMAN ([id number]) on 10/05/2018 11:40:33 PM Referred By: CAESAR CANTU Confirmed By:ASTER SHERMAN
[2018-10-05] MEDS ORDERED: CLOPIDOGREL BISULFATE 75MG TAB PO ONE (23:40)
[2018-10-05] MEDS ORDERED: METOPROLOL TART 50 MG TAB PO ONE (23:40)
[2018-10-05 23:47] LABS: PLATELET COUNT, AUTOMATED 231 K/uL (150-450)
[2018-10-05] MEDS ORDERED: ESCI10TA8 PO (23:54)
[2018-10-05] MEDS ORDERED: ASPI-1471 PO (23:54)
[2018-10-05] MEDS ORDERED: CLOP75TA43 PO (23:54)
[2018-10-05] MEDS ORDERED: ATOR40TA24 PO (23:54)
[2018-10-05] MEDS ORDERED: HYDR-2966 PO (23:54)
[2018-10-05] MEDS ORDERED: LEVO88TA43 PO (23:54)
--- NOTE | 2018-10-06 00:21 | RADIOLOGY IMAGING REPORT ---
FACILITY: [facility] [place] PATIENT NAME: Pravin Ellsworth : 1960 MR: [id number] V: [id number] EXAM DATE: ORDERING PHYSICIAN: JASMINE COLON TECHNOLOGIST: Location: [facility] Patient: Pravin Ellsworth : 1960 Visit/Account:[id number] Date of Sevice: 10/05/2018 CHEST SINGLE AP Indication: Chest Pain Comparison: March 17, 2018. Findings: Heart size within normal limits. There is no focal infiltrate or lobar consolidation. No pneumothorax or pleural effusion. IMPRESSION: 1. No acute cardiopulmonary process. Report Dictated By: Rafa Damon MD at 10/06/2018 12:14 AM Report E-Signed By: Rafa Damon MD at 10/06/2018 12:15 AM WSN:[id number]
[2018-10-06 02:00] VITALS: BP 116/76
--- NOTE | 2018-10-06 02:41 | EKG ---
FACILITY: [facility] [place] PATIENT NAME: ALTAGRACIA STONE : [id number] MR: [id number] V: [id number] EXAM DATE: ORDERING PHYSICIAN: JASMINE COLON TECHNOLOGIST: GURJIT Strat[place] Reason : REPEAT EKG Blood Pressure : / mmHG Vent. Rate : 071 BPM Atrial Rate : 071 BPM P-R Int : 192 ms QRS Dur : 098 ms QT Int : 390 ms P-R-T Axes : 033 -17 036 degrees QTc Int : 423 ms Normal sinus rhythm Normal ECG When compared with ECG of 05-OCT-2018 23:14, No significant change was found Confirmed by ASTER SHERMAN ([id number]) on 10/06/2018 6:49:59 AM Referred By: Confirmed By:ASTER SHERMAN
== END 2018-10-06 02:51 | disposition home or self-care (01) ==
LOC: ER 23:19
DX: R07.9 Chest pain, unspecified (principal)
CPT/HCPCS: 71045; 83880; 84484; 85025; 93005; 99284; A9270; 82040; 82247; 82310; 82374; 82435; 82565; 82947; 84075; 84132; 84155; 84295; 84450; 84460; 84520

== ENCOUNTER → 2018-10-05 | Outpatient (CLI) | payer MEDICARE ==
[~2018-10-05] MED LIST changes: +ASPI-1471 PO; +ATOR40TA24 PO; +CLOP75TA43 PO; +ESCI10TA8 PO; +LEVO88TA43 PO
== END ==
LOC: AMB 22:48
PROVIDERS: ATTEND Nurse Practitioner
DX: R53.1 Weakness (principal)
CPT/HCPCS: A0425; A0427

== ENCOUNTER 2018-10-07 09:52 | Emergency (ER) | payer MEDICARE ==
[2018-10-07] MEDS ORDERED: NS(*) 0.9% 1000 ML BAG 1,000 ML IV ONE (09:56)
--- NOTE | 2018-10-07 09:56 | ER Report ---
History and Physical Time Seen By MD: 09:55 HPI/ROS CHIEF COMPLAINT: Chest pain HISTORY OF PRESENT ILLNESS: Patient is a 58-year-old male with acute onset of chest pain which woke the patient from sleep at approximately 3:00 this morning. Patient reports midsternal chest pain with radiation to the right arm, mild shortness of breath which persisted until approximately 20 minutes ago. Patient reports that these symptoms are very similar to prior presentation of chest pain. Patient was sent for outpatient stress test and found to have a positive stress test prompting cardiac catheterization in May at which time the patient was found to have 100% blockage of the LAD at which time a stent was placed. Patient did receive 3 baby aspirin since time of onset. The patient's did give the patient antihypertensive medication due to mild hypertension. Patient was also given nitroglycerin sublingual. Patient's prior procedures were completed at [facility] REVIEW OF SYSTEMS: Constitutional: No fever, no chills. Eyes: No discharge. ENT: No sore throat. Cardiovascular: + Midsternal chest pain, no palpitations. Respiratory: No cough, no shortness of breath. Gastrointestinal: No abdominal pain, no vomiting. Genitourinary: No hematuria. Musculoskeletal: No back pain. Skin: No rashes. Neurological: No headache. Allergies: Coded Allergies: No Known Drug Allergies (Unverified , 03/17/18) Home Meds Reported Medications Aspirin (ASPIR 81) 81 Mg Tablet.dr, 81 MG PO QDAY, TAB 10/05/18 Escitalopram Oxalate (ESCITALOPRAM OXALATE) 10 Mg Tablet, 5 MG PO QDAY, TAB 10/05/18 Levothyroxine Sodium (SYNTHROID) 88 Mcg Tablet, 88 MCG PO QDAY 10/05/18 Clopidogrel Bisulfate (PLAVIX) 75 Mg Tablet, 1 TAB PO QDAY, TAB 10/05/18 Atorvastatin Calcium (LIPITOR) 40 Mg Tablet, 2 TAB PO QDAY, TAB 10/05/18 Hydrochlorothiazide (HYDROCHLOROTHIAZIDE) 25 Mg Tablet, 0.5 TAB PO QDAY, TAB 10/05/18 Lisinopril (LISINOPRIL) 40 Mg Tablet, 40 MG PO QDAY, TAB 11/12/17 Discontinued Reported Medications Levothyroxine Sodium (SYNTHROID) 25 Mcg Tablet, 25 MCG PO QDAY 11/12/17 Hydrochlorothiazide (HYDROCHLOROTHIAZIDE) 25 Mg Tablet, 1 TAB PO QDAY, TAB 11/12/17 Discontinued Scripts Clonidine Hcl (CLONIDINE HCL) 0.1 Mg Tablet, 0.1 MG PO BID PRN for HYPERTENSION, #10 TAB 0 Refills Prov:JASMINE COLON MD 11/13/17 Hx Smoking: No Exposure to Second Hand Smoke?: No Hx Substance Use Disorder: No Hx Alcohol Use: No Constitutional Vital Sign - Last 24 Hours 10/07/18 09:57 Temp 98.3 Pulse 70 Resp 18 B/P (MAP) 154/112 Pulse Ox 93 O2 Delivery Room Air Physical Exam General Appearance: The patient is alert, has no immediate need for airway p rotection and no signs of toxicity. No acute distress Eyes: Pupils equal and round no pallor or injection. ENT, Mouth: Mucous membranes are moist. Respiratory: There are no retractions, lungs are clear to auscultation. Cardiovascular: Regular rate and rhythm. Gastrointestinal: Abdomen is soft and non tender, no masses, bowel sounds normal. Neurological: No focal neurological deficits Skin: Warm and dry, no rashes. Musculoskeletal: Neck is supple non tender. Extremities are nontender, nonswollen and have full range of motion. DIFFERENTIAL DIAGNOSIS: After history and physical exam differential diagnosis was considered for chest pain including but not limited to myocardial ischemia, pericarditis pulmonary embolus, chest wall pain, pleural inflammation and pulmonary infectious causes. Medical Decision Making Data Points Result Diagram: 10/07/18 1000 10/07/18 1000 Laboratory Hematology Test 10/07/18 10:00 Red Blood Count 5.32 M/uL (4.00-5.60) Mean Corpuscular Volume 91.8 fL (80.0-96.0) Mean Corpuscular Hemoglobin 31.4 pg (26.0-33.0) Mean Corpuscular Hemoglobin Concent 34.2 g/dL (32.0-36.0) Red Cell Distribution Width 13.6 % (11.5-14.5) Mean Platelet Volume 8.4 fL (7.2-11.1) Neutrophils (%) (Auto) 64.4 % (39.4-72.5) Lymphocytes (%) (Auto) 24.5 % (17.6-49.6) Monocytes (%) (Auto) 8.1 % (4.1-12.4) Eosinophils (%) (Auto) 2.3 % (0.4-6.7) Basophils (%) (Auto) 0.7 % (0.3-1.4) Nucleated RBC Relative Count (auto) 0.1 /100WBC Neutrophils # (Auto) 3.8 K/uL (2.0-7.4) Lymphocytes # (Auto) 1.4 K/uL (1.3-3.6) Monocytes # (Auto) 0.5 K/uL (0.3-1.0) Eosinophils # (Auto) 0.1 K/uL (0.0-0.5) Basophils # (Auto) 0.0 K/uL (0.0-0.1) Nucleated RBC Absolute Count (auto) 0.00 K/uL Prothrombin Time 12.9 seconds (12.0-14.4) Prothromb Time International Ratio 0.97 Activated Partial Thromboplast Time 33 seconds (23-35) D-Dimer Quantitative (PE/DVT) < 0.27 ug/ml (0-0.50) Sodium Level 140 mmol/L (137-145) Potassium Level 4.1 mmol/L (3.5-5.0) Chloride Level 105 mmol/L (98-107) Carbon Dioxide Level 26 mmol/L (22-30) Blood Urea Nitrogen 20 mg/dl (9-21) Creatinine 1.10 mg/dl (0.66-1.25) Glomerular Filtration Rate Calc > 60.0 Random Glucose 91 mg/dl (75-110) Calcium Level 9.5 mg/dl (8.4-10.2) Total Bilirubin 1.5 mg/dl (0.2-1.3) Aspartate Amino Transf (AST/SGOT) 29 U/L (0-35) Alanine Aminotransferase (ALT/SGPT) 59 U/L (0-56) Alkaline Phosphatase 69 U/L (0-126) Troponin I < 0.012 ng/ml B-Type Natriuretic Peptide 10 pg/ml (0-100) Total Protein 7.1 g/dl (6.3-8.2) Albumin 4.3 g/dl (3.5-5.0) Lipase 104 U/L (23-300) Chemistry Test 10/07/18 10:00 White Blood Count 5.9 k/uL (4.5-11.0) Red Blood Count 5.32 M/uL (4.00-5.60) Hemoglobin 16.7 g/dL (14.0-18.0) Hematocrit 48.8 % (42.0-52.0) Mean Corpuscular Volume 91.8 fL (80.0-96.0) Mean Corpuscular Hemoglobin 31.4 pg (26.0-33.0) Mean Corpuscular Hemoglobin Concent 34.2 g/dL (32.0-36.0) Red Cell Distribution Width 13.6 % (11.5-14.5) Platelet Count 200 K/uL (150-450) Mean Platelet Volume 8.4 fL (7.2-11.1) Neutrophils (%) (Auto) 64.4 % (39.4-72.5) Lymphocytes (%) (Auto) 24.5 % (17.6-49.6) Monocytes (%) (Auto) 8.1 % (4.1-12.4) Eosinophils (%) (Auto) 2.3 % (0.4-6.7) Basophils (%) (Auto) 0.7 % (0.3-1.4) Nucleated RBC Relative Count (auto) 0.1 /100WBC Neutrophils # (Auto) 3.8 K/uL (2.0-7.4) Lymphocytes # (Auto) 1.4 K/uL (1.3-3.6) Monocytes # (Auto) 0.5 K/uL (0.3-1.0) Eosinophils # (Auto) 0.1 K/uL (0.0-0.5) Basophils # (Auto) 0.0 K/uL (0.0-0.1) Nucleated RBC Absolute Count (auto) 0.00 K/uL Prothrombin Time 12.9 seconds (12.0-14.4) Prothromb Time International Ratio 0.97 Activated Partial Thromboplast Time 33 seconds (23-35) D-Dimer Quantitative (PE/DVT) < 0.27 ug/ml (0-0.50) Glomerular Filtration Rate Calc > 60.0 Calcium Level 9.5 mg/dl (8.4-10.2) Total Bilirubin 1.5 mg/dl (0.2-1.3) Aspartate Amino Transf (AST/SGOT) 29 U/L (0-35) Alanine Aminotransferase (ALT/SGPT) 59 U/L (0-56) Alkaline Phosphatase 69 U/L (0-126) Troponin I < 0.012 ng/ml B-Type Natriuretic Peptide 10 pg/ml (0-100) Total Protein 7.1 g/dl (6.3-8.2) Albumin 4.3 g/dl (3.5-5.0) Lipase 104 U/L (23-300) Coagulation Test 10/07/18 10:00 Prothrombin Time 12.9 seconds Prothromb Time International Ratio 0.97 Activated Partial Thromboplast Time 33 seconds D-Dimer Quantitative (PE/DVT) < 0.27 ug/ml EKG/Imaging Imaging PATIENT NAME: Pravin Ellsworth : 1960 MR: [id number] V: [id number] EXAM DATE: ORDERING PHYSICIAN: TOSHIA CHOWDARY TECHNOLOGIST: Location: [facility] [place] Patient: Pravin Ellsworth : 1960 Visit/Account:[id number] Date of Sevice: 10/07/2018 CHEST SINGLE AP HISTORY: Chest Pain COMPARISON: 10/06/2018 FINDINGS: Cardiomediastinal contours: Normal Lungs and pleura: Normal Bones/soft tissues: Normal Other findings: None significant IMPRESSION: 1. No acute cardiopulmonary disease. No change. ED Course/Re-evaluation ED Course Patient is a 58-year-old male here with complaints of midsternal chest pain similar to prior episodes of chest pain with a recent cardiac catheterization in May with stent placement for a 100% LAD blockage. Patient reports symptoms started approximately 3:00 this morning. Troponin was negative however due to the patient's prior history of LAD lesion in the absence of positive troponins, decision was made to transfer to [facility]. I discussed the patient with Dr. Arteaga who is the hospitalist at [facility] who accepted the patient to the hospitalist service. EKG showed no ischemic findings. Patient was hemodynamically stable throughout course. Decision to Disposition Date: Oct 07, 2018 Decision to Disposition Time: 11:41 Depart Departure Latest Vital Signs Vital Signs Date Time Temp Pulse Resp B/P (MAP) Pulse Ox O2 Delivery O2 Flow Rate FiO2 10/07/18 09:57 98.3 70 18 154/112 93 Room Air Impression: Primary Impression: Chest pain Condition: Improved ([facility]) Disposition: XFER TO [facility] Patient Instructions: Chest Pain (DC) TOSHIA CHOWDARY DO Oct 07, 2018 09:56
[2018-10-07] MEDS ORDERED: ASPIRIN 81 MG CHEW PO ONE (10:00)
--- NOTE | 2018-10-07 10:10 | EKG ---
FACILITY: [facility] PATIENT NAME: ALTAGRACIA STONE : [id number] MR: [id number] V: [id number] EXAM DATE: ORDERING PHYSICIAN: TOSHIA CHOWDARY TECHNOLOGIST: Test Reason : chest pain Blood Pressure : / mmHG Vent. Rate : 070 BPM Atrial Rate : 070 BPM P-R Int : 178 ms QRS Dur : 096 ms QT Int : 390 ms P-R-T Axes : 020 -43 042 degrees QTc Int : 421 ms Normal sinus rhythm Left axis deviation Abnormal ECG When compared with ECG of 06-OCT-2018 02:13, No significant change was found Confirmed by JS GODOY ([id number]) on 10/07/2018 11:39:11 AM Referred By: CAESAR CANTU Confirmed By:JS GODOY
[2018-10-07 10:20] LABS: PLATELET COUNT, AUTOMATED 200 K/uL (150-450)
--- NOTE | 2018-10-07 10:30 | RADIOLOGY IMAGING REPORT ---
FACILITY: [facility] [place] PATIENT NAME: Pravin Ellsworth : 1960 MR: [id number] V: [id number] EXAM DATE: ORDERING PHYSICIAN: TOSHIA CHOWDARY TECHNOLOGIST: Location: [facility] [place] Patient: Pravin Ellsworth : 1960 Visit/Account:[id number] Date of Sevice: 10/07/2018 CHEST SINGLE AP HISTORY: Chest Pain COMPARISON: 10/06/2018 FINDINGS: Cardiomediastinal contours: Normal Lungs and pleura: Normal Bones/soft tissues: Normal Other findings: None significant IMPRESSION: 1. No acute cardiopulmonary disease. No change. Report Dictated By: Reji Gonsalves MD at 10/07/2018 10:23 AM Report E-Signed By: Reji Gonsalves MD at 10/07/2018 10:24 AM WSN:[id number]
[2018-10-07 10:32] LABS: INR 0.97
[2018-10-07 12:30] VITALS: BP 141/115
== END 2018-10-07 12:50 | disposition short-term general hospital (02) ==
LOC: ER 10:03
DX: R07.9 Chest pain, unspecified (principal)
CPT/HCPCS: 71045; 83690; 83880; 84484; 85025; 85379; 85610; 85730; 93005; 96360; 96361; 99285; A9270; J7030; 82040; 82247; 82310; 82374; 82435; 82565; 82947; 84075; 84132; 84155; 84295; 84450; 84460; 84520

== ENCOUNTER → 2018-10-07 | Outpatient (CLI) | payer MEDICARE ==
[~2018-10-07] MED LIST changes: +ASPI-1471 PO; +ATOR40TA24 PO; +CLOP75TA43 PO; +ESCI10TA8 PO; +LEVO88TA43 PO
== END ==
LOC: AMB 12:57
PROVIDERS: ATTEND Nurse Practitioner
DX: R07.9 Chest pain, unspecified (principal)
CPT/HCPCS: A0425; A0426